=== PATIENT | male | born 1960 ===

== ENCOUNTER → 2023-02-12 06:00 | Outpatient (CLI) | payer OTHER ==
[~2023-02-12] VITALS: Ht 172.7 cm; Wt 94.3 kg
[~2023-02-12 06:00] MED LIST: ACID REDUCER20 M1 PO; FARXIGA10 MG PO; ROSUVASTATIN CA10 MG PO; ZESTRIL10 M1 PO
[2023-02-12 09:14] LABS: PH,URINE 5.5 (5.0-8.0); URINE APPEARANCE Clear; URINE BILIRRUBIN Negative (NEGATIVE); URINE BLOOD Negative; URINE COLOR Yellow; URINE LEUKOCYTE Negative; URINE NITRATE Negative; URINE PROTEIN Negative (NEGATIVE); URINE UROBILINOGEN 0.2 E.U./dl
[2023-02-12 09:23] LABS: URINE BACTERIA 9.6 uL (0.0-1933); URINE EPITHELIAL CELLS 4.9 uL (0.0-38.8); URINE WBC 1.8 uL (0.0-23.2)
[2023-02-12 09:28] LABS: URINE GLUCOSE >=1000 MG/DL (NEGATIVE); URINE RBC 1.1 uL (0.0-20.8)
[2023-02-12 09:32] LABS: HEMATOCRIT 46.6 % (39.0-48.0); HEMOGLOBIN 15.8 g/dL (13-16.00); MEAN CELL VOLUME 92.5 fL (80.0-100.00); MEAN CORPUSCULAR HEMOGLOBIN 31.3 pg (27.00-32.0); MEAN CORPUSCULAR HGB CONC 33.9 g/dl (32.0-36.0); PLATELET COUNT 173 K/uL (150-450); RED BLOOD COUNT 5.04 M/uL (4.00-6.00); RED CELL DISTRIBUTION WIDTH 13.7 % (11.5-14.5)
[2023-02-12 10:33] LABS: ALBUMIN 3.7 gm/dL (3.4-5.0); BILIRUBIN TOTAL 0.64 mg/dL (0.3-1.2); CALCIUM 8.7 mg/dL (8.5-10.1); CREATININE SERUM 1.06 mg/dL (0.70-1.30); GFR 70.34; GLOBULINA 3.4 G/DL (2.4-3.5); POTASSIUM 4.2 mEq/L (3.5-5.1); TOTAL PROTEIN 7.1 gm/dL (6.4-8.2)
[2023-02-12 10:35] LABS: INR 0.99; PARTIAL THROMBOPLASTIN TIME 25.9 SECONDS (22.0-34.0); PROTHROMBIN TIME 10.4 SECONDS (9.0-11.5)
== END | disposition home or self-care (01) ==
LOC: LAB 06:00 → ADM 07:15 → CIR.AMB 02-18 07:15 → EDSTATUS 02-18 07:15 → CIR.AMB 02-18 09:15
PROVIDERS: ATTEND Otolaryngology Otology & Neurotology
DX: Z01.812 Encounter for preprocedural laboratory examination (principal); Z01.810 Encounter for preprocedural cardiovascular examination; Z01.811 Encounter for preprocedural respiratory examination; D68.9 Coagulation defect, unspecified; H72.91 Unspecified perforation of tympanic membrane, right ear; Z20.822 Contact with and (suspected) exposure to COVID-19

== ENCOUNTER 2023-04-08 06:05 | Day surgery (SDC) | payer OTHER ==
[2023-04-02 08:33] LABS: HEMATOCRIT 46.3 % (39.0-48.0); HEMOGLOBIN 15.9 g/dL (13-16.00); MEAN CELL VOLUME 92.9 fL (80.0-100.00); MEAN CORPUSCULAR HEMOGLOBIN 31.8 pg (27.00-32.0); MEAN CORPUSCULAR HGB CONC 34.3 g/dl (32.0-36.0); PLATELET COUNT 173 K/uL (150-450); RED BLOOD COUNT 4.99 M/uL (4.00-6.00); RED CELL DISTRIBUTION WIDTH 13.7 % (11.5-14.5)
[2023-04-02 08:35] LABS: PH,URINE 5.5 (5.0-8.0); URINE APPEARANCE Clear; URINE BILIRRUBIN Negative (NEGATIVE); URINE BLOOD Negative; URINE COLOR Yellow; URINE LEUKOCYTE Negative; URINE NITRATE Negative; URINE PROTEIN Trace (NEGATIVE)
[2023-04-02 08:41] LABS: URINE EPITHELIAL CELLS 6.7 uL (0.0-38.8); URINE RBC 2.5 uL (0.0-20.8)
[2023-04-02 08:46] LABS: URINE GLUCOSE >=1000 MG/DL (NEGATIVE)
[2023-04-02 08:55] LABS: INR 0.96; PROTHROMBIN TIME 10.1 SECONDS (9.0-11.5)
[2023-04-02 09:01] LABS: ALBUMIN 3.9 gm/dL (3.4-5.0); BILIRUBIN TOTAL 0.49 mg/dL (0.3-1.2); CALCIUM 8.9 mg/dL (8.5-10.1); CREATININE SERUM 1.01 mg/dL (0.70-1.30); GFR 74.37; GLOBULINA 3.2 G/DL (2.4-3.5); POTASSIUM 4.24 mEq/L (3.5-5.1); TOTAL PROTEIN 7.1 gm/dL (6.4-8.2)
== END 2023-04-08 12:25 | disposition home or self-care (01) ==
LOC: CIR.AMB 06:05
PROVIDERS: ATTEND Otolaryngology Otology & Neurotology
DX: H72.91 Unspecified perforation of tympanic membrane, right ear (principal); I10 Essential (primary) hypertension; E78.5 Hyperlipidemia, unspecified; Z20.822 Contact with and (suspected) exposure to COVID-19; E11.9 Type 2 diabetes mellitus without complications